=== PATIENT | female | born 1995 | race Hispanic/Latino ===

== ENCOUNTER 2017-05-30 23:57 | Emergency (ER) | payer OTHER ==
[2017-05-31] MEDS ORDERED: IBUPROFEN 400 MG TABLET ONE (00:14)
== END 2017-05-31 00:59 | disposition home or self-care (01) ==
LOC: EDH 23:57
DX: S19.89XA Other specified injuries of other specified part of neck, initial encounter (principal); S29.8XXA Other specified injuries of thorax, initial encounter; V49.59XA Passenger injured in collision with other motor vehicles in traffic accident, initial encounter; Y93.89 Activity, other specified; Y92.89 Other specified places as the place of occurrence of the external cause; Y99.8 Other external cause status
CPT/HCPCS: 72040

== ENCOUNTER 2018-03-29 13:15 | Emergency (ER) | payer MEDICAID | END 2018-03-29 13:45 | disposition home or self-care (01) | LOC: EDH 13:15 | DX: O26.891 Other specified pregnancy related conditions, first trimester (principal); O99.611 Diseases of the digestive system complicating pregnancy, first trimester; R10.30 Lower abdominal pain, unspecified; K59.00 Constipation, unspecified; Z3A.10 10 weeks gestation of pregnancy ==

== ENCOUNTER 2018-04-24 22:38 | Emergency (ER) | payer MEDICAID ==
[2018-04-24] MEDS ORDERED: SODIUM CHLORIDE 0.9% 1000ML 1,000 ML IV ONE (22:59)
[2018-04-24 23:11] LABS: BASOPHILS % (AUTO) 0.6 % (0.0-5.0); CREATININE 0.8 mg/dL (0.5-1.5); EOSINOPHILS % (AUTO) 1.5 % (0.0-8.0); HEMATOCRIT 38.5 % (36-48); MEAN CORPUSCULAR HEMOGLOBIN 26.1 pg (27.0-33.0); MEAN CORPUSCULAR HGB CONC 33.1 g/dL (32.0-36.0); MONOCYTES % (AUTO) 7.7 % (3.0-13.0); NEUTROPHILS % (AUTO) 66.2 % (40.0-77.0); PLATELET COUNT (AUTO) 339 K/uL (130-400); POTASSIUM 3.6 mmol/L (3.5-5.1); RED BLOOD CELL COUNT(AUTO) 4.87 MIL/uL (4.00-5.50); RED CELL DISTRIBUTION WIDTH 16.1 % (11.0-15.5); WHITE BLOOD COUNT (AUTO) 12.4 K/uL (4.8-10.8)
[2018-04-24] MEDS ORDERED: ONDANSETRON HCL 4 MG/2 ML VIAL ONE (23:13)
[2018-04-24 23:18] LABS: ALBUMIN 3.2 g/dL (3.5-5.0); BILIRUBIN,TOTAL 0.1 mg/dL (0.2-1.0); TOTAL PROTEIN, SERUM 7.9 g/dL (6.0-8.3)
== END 2018-04-25 00:10 | disposition home or self-care (01) ==
LOC: EDH 22:38
DX: O21.0 Mild hyperemesis gravidarum (principal); O99.511 Diseases of the respiratory system complicating pregnancy, first trimester; J06.9 Acute upper respiratory infection, unspecified; Z79.899 Other long term (current) drug therapy; Z3A.12 12 weeks gestation of pregnancy
CPT/HCPCS: 36415; 80053; 85025; 96361; 96374; 99283; J2405; J7030

== ENCOUNTER 2018-06-22 02:53 | Observation (INO) | payer MEDICAID ==
[~2018-06-22] VITALS: Ht 152.4 cm; Wt 84.8 kg
[2018-06-22 03:15] VITALS: BP 100/56
[2018-06-22 04:01] LABS: APPEARANCE,URINE Cloudy (CLEAR); BILIRUBIN,URINE Negative (NEGATIVE); COLOR,URINE Yellow (YELLOW); GLUCOSE, URINE (UA) Negative (NEGATIVE); KETONES,URINE Trace mg/dL (NEGATIVE); LEUKOCYTE ESTERASE ,URINE Small (NEGATIVE); NITRATE,URINE Negative (NEGATIVE); OCCULT BLOOD,URINE Negative (NEGATIVE); PROTEIN,URINE POS 1+ (NEGATIVE)
[2018-06-22 04:09] LABS: AMPHET/METH SCREEN,URINE NEGATIVE (NEGATIVE); BARBITURATE SCREEN, URINE NEGATIVE (NEGATIVE); BENZODIAZEPINES SCREEN,URINE NEGATIVE (NEGATIVE); CANNABINOID SCREEN,URINE NEGATIVE (NEGATIVE); COCAINE SCREEN,URINE NEGATIVE (NEGATIVE); OPIATE SCREEN,URINE NEGATIVE (NEGATIVE); PHENCYCLIDINE SCREEN,URINE NEGATIVE (NEGATIVE)
[2018-06-22 04:15] LABS: BACTERIA,URINE Few /HPF (None Seen); MUCUS,URINE Many LPF (None Seen); SQUAMOUS EPITHELIAL CELL,UR Many /HPF (0-2)
== END 2018-06-22 04:12 | disposition home or self-care (01) ==
LOC: EDH 02:53 → LDH 02:54
PROVIDERS: ADMIT Obstetrics & Gynecology; ATTEND Obstetrics & Gynecology
DX: O26.892 Other specified pregnancy related conditions, second trimester (principal); R10.30 Lower abdominal pain, unspecified; Z3A.22 22 weeks gestation of pregnancy; Z79.899 Other long term (current) drug therapy
CPT/HCPCS: 59025; 80305; 81001; 99284; G0378

== ENCOUNTER 2018-08-01 18:45 | Observation (INO) | payer MEDICAID ==
[2018-08-01 19:26] LABS: APPEARANCE,URINE CLOUDY (CLEAR); BILIRUBIN,URINE NEGATIVE (NEGATIVE); COLOR,URINE YELLOW (YELLOW); GLUCOSE, URINE (UA) NEGATIVE (NEGATIVE); KETONES,URINE NEGATIVE (NEGATIVE); LEUKOCYTE ESTERASE ,URINE MODERATE (NEGATIVE); NITRATE,URINE NEGATIVE (NEGATIVE); OCCULT BLOOD,URINE TRACE-LYSED (NEGATIVE); PROTEIN,URINE TRACE mg/dL (NEGATIVE)
[2018-08-01 19:33] LABS: BACTERIA,URINE Few /HPF (None Seen); MUCUS,URINE Few LPF (None Seen); SQUAMOUS EPITHELIAL CELL,UR Moderate /HPF (0-2)
[2018-08-01] MEDS ORDERED: LACTATED RINGERS 1000ML 1,000 ML IV PRN (20:15)
== END 2018-08-01 20:50 | disposition home or self-care (01) ==
LOC: EDH 18:45 → LDH 18:54
PROVIDERS: ADMIT Obstetrics & Gynecology; ATTEND Obstetrics & Gynecology
DX: O26.893 Other specified pregnancy related conditions, third trimester (principal); R10.9 Unspecified abdominal pain; Z3A.28 28 weeks gestation of pregnancy
CPT/HCPCS: 81001; 99284; G0378 ×2

== ENCOUNTER 2018-10-09 20:26 | Observation (INO) | payer MEDICAID ==
[~2018-10-09] VITALS: Ht 152.4 cm; Wt 86.2 kg
[2018-10-09 20:42] VITALS: BP 110/69
[2018-10-09] MEDS ORDERED: LACTATED RINGERS 1000ML IV PRN (20:45)
[2018-10-09 21:30] LABS: BILIRUBIN,URINE Negative (NEGATIVE); COLOR,URINE Yellow (YELLOW); GLUCOSE, URINE (UA) Negative (NEGATIVE); KETONES,URINE Negative (NEGATIVE); LEUKOCYTE ESTERASE ,URINE Moderate (NEGATIVE); NITRATE,URINE Negative (NEGATIVE); OCCULT BLOOD,URINE Negative (NEGATIVE); PH,URINE 5.5 (5.0-8.0); PROTEIN,URINE Trace mg/dL (NEGATIVE)
[2018-10-09 21:42] LABS: APPEARANCE,URINE SLIGHTLY CLOUDY (CLEAR)
[2018-10-09 21:50] LABS: BACTERIA,URINE Moderate /HPF (None Seen); RBC,URINE 0-1 /HPF (0-1); WBC,URINE 51-100 /HPF (0-1)
[2018-10-09] MEDS ORDERED: LIDOCAINE HCL MPF 1% 5ML VIAL IM SCH (22:00)
[2018-10-09] MEDS ORDERED: CEFTRIAXONE SODIUM 1 GM IM ONE (22:00)
== END 2018-10-09 23:10 | disposition home or self-care (01) ==
LOC: EDH 20:26 → LDH 20:27
PROVIDERS: ADMIT Obstetrics & Gynecology; ATTEND Obstetrics & Gynecology
DX: O26.893 Other specified pregnancy related conditions, third trimester (principal); M54.5 Low back pain; Z3A.37 37 weeks gestation of pregnancy
CPT/HCPCS: 81001; 87088; 96372 ×2; 99284; G0378 ×3; J0696; J3490

== ENCOUNTER 2019-11-06 15:58 | Emergency (ER) | payer MEDICAID, OTHER ==
[~2019-11-06 15:58] MED LIST: IBUP-2070 PO
[2019-11-06 16:54] LABS: RAPID GROUP A STREP NEGATIVE (NEGATIVE)
== END 2019-11-06 20:09 | disposition left against medical advice (07) ==
LOC: EDH 15:58
DX: R50.9 Fever, unspecified (principal); R51 Headache; J02.9 Acute pharyngitis, unspecified; R09.81 Nasal congestion; Z53.21 Procedure and treatment not carried out due to patient leaving prior to being seen by health care provider
CPT/HCPCS: 87804; 87880